=== PATIENT | female | born 1945 | race Caucasian/White ===

== ENCOUNTER 2021-04-27 21:26 | Emergency (ER) | payer BC ==
[2021-04-27] MEDS ORDERED: hydrOXYzine HCl 50 MG/ML SDV IM ONE (21:33)
[2021-04-27] MEDS ORDERED: Morphine 10 MG/ML SDV IM ONE (21:33)
--- NOTE | 2021-04-27 21:36 | EDM.PDOC ---
ED HPI GENERAL MEDICAL PROBLEM - General Stated Complaint: PATIENT IS IN HORRIBLE PAIN Time Seen by Provider: 04/27/21 21:34 Source of Information: Reports: Patient History Limitations: Reports: No Limitations - History of Present Illness INITIAL COMMENTS - FREE TEXT/NARRATIVE: Kristen complains of right lower abd. pain x 2d progressively getting worse.No vomiting. Associated with mild obstipation. No fever or chills and denies any symptoms Lower abd pain, R>L Pain Score (Numeric/FACES): 8 - Related Data Allergies Allergy/AdvReac Type Severity Reaction Status Date / Time No Known Allergies Allergy Verified 04/27/21 22:30 Home Meds: Home Meds Levothyroxine 75 mcg PO ACBREAKFAST 04/27/21 [History] ED ROS GENERAL - Review of Systems Review Of Systems: Comprehensive ROS is negative, except as noted in HPI. ED EXAM, GI/ABD - Physical Exam Exam: See Below Exam Limited By: No Limitations General Appearance: Alert, WD/WN, No Apparent Distress Nose: Normal Inspection Throat/Mouth: Normal Inspection Head: Atraumatic Neck: Normal Inspection Respiratory/Chest: No Respiratory Distress Cardiovascular: Normal Peripheral Pulses GI/Abdominal Exam: Normal Bowel Sounds, Distended, Rebound, Tender (RLQ) Rectal (Female) Exam: Deferred Back Exam: Normal Inspection Course - Vital Signs Last Recorded V/S: Last Vital Signs Temp 100.0 F 04/27/21 21:51 Pulse 65 04/27/21 21:51 Resp 20 04/27/21 21:51 BP 150/65 H 04/27/21 21:51 Pulse Ox 96 04/27/21 21:51 - Orders/Labs/Meds Orders: Active Orders 24 hr Category Date Time Status Abdomen Pelvis wo Cont [CT] Stat Exams 04/27/21 21:33 Taken UA W/MICROSCOPIC [URIN] Stat Lab 04/27/21 21:34 Ordered Sodium Chloride 0.9% [Normal Saline] 1,000 ml Med 04/27/21 23:15 Active IV ASDIRECTED Sodium Chloride 0.9% [Saline Flush] Med 04/27/21 23:02 Active 10 ml FLUSH ASDIRECTED PRN Peripheral IV Insertion Adult [OM.PC] Routine Oth 04/27/21 23:02 Ordered Medication Orders Sodium Chloride (Normal Saline) 1,000 mls @ 150 mls/hr IV ASDIRECTED DELFIN Sodium Chloride (Sodium Chloride 0.9% 10 Ml Syringe) 10 ml FLUSH ASDIRECTED PRN PRN Reason: Keep Vein Open Labs: Laboratory Tests 04/27/21 04/27/21 04/27/21 Range/Units 21:45 21:45 21:45 WBC 13.3 H (3.0-10.3) x10-3/uL RBC 4.35 (3.60-5.20) x10(6)uL Hgb 12.9 (11.4-15.5) g/dL Hct 38.5 (34.2-48.2) % MCV 88.4 (76.7-100.5) fL MCH 29.5 (23.9-33.9) pg MCHC 33.4 (31.9-34.8) g/dL RDW 12.9 (12.3-16.5) % Plt Count 230 (151-488) x10(3)uL MPV 8.9 (7.1-12.4) fL Neut % (Auto) 81.0 H (30.8-76.2) % Lymph % (Auto) 12.0 L (18.4-52.1) % [place] % (Auto) 6.4 (4.4-15.7) % Eos % (Auto) 0.2 L (0.6-8.1) % Baso % (Auto) 0.4 (0.2-1.5) % Neut # (Auto) 10.8 H (1.5-6.3) x10-3/uL Lymph # (Auto) 1.6 (1.0-4.4) x10-3/uL [place] # (Auto) 0.9 (0.3-1.0) x10-3/uL Eos # (Auto) 0.0 (0.0-0.8) x10-3/uL Baso # (Auto) 0.1 (0.0-0.1) x10-3/uL Sodium 142 (135-145) mmol/L Potassium 2.9 L (3.5-5.3) mmol/L Chloride 101 (100-110) mmol/L Carbon Dioxide 29 (21-32) mmol/L BUN 19 H (7-18) mg/dL Creatinine 1.2 H (0.55-1.02) mg/dL Est Cr Clr Drug Dosing 32.99 mL/min Estimated GFR (MDRD) 44 L (>60) BUN/Creatinine Ratio 15.8 (9-20) Glucose 203 H (80-116) mg/dL Lactic Acid 1.6 (0.4-2.0) mmol/L Calcium 8.6 (8.6-10.2) mg/dL Total Bilirubin 1.9 H (0.1-1.3) mg/dL AST 16 (5-25) IU/L ALT 19 (12-36) U/L Alkaline Phosphatase 56 (56-112) IU/L Total Protein 6.7 (6.0-8.0) g/dL Albumin 3.4 (3.2-4.6) g/dL Globulin 3.3 g/dL Albumin/Globulin Ratio 1.0 Meds: Medications Generic Name Dose Route Start Last Admin Trade Name Freq PRN Reason Stop Dose Admin Sodium Chloride 1,000 mls @ 150 mls/hr 04/27/21 23:15 Normal Saline IV ASDIRECTED DELFIN Sodium Chloride 10 ml 04/27/21 23:02 Sodium Chloride 0.9% 10 Ml Syringe FLUSH ASDIRECTED PRN Keep Vein Open Discontinued Medications Generic Name Dose Route Start Last Admin Trade Name Freq PRN Reason Stop Dose Admin Hydroxyzine HCl 50 mg 04/27/21 21:33 04/27/21 22:09 Hydroxyzine Hcl 50 Mg/Ml Sdv IM 04/27/21 21:34 50 mg ONETIME ONE Administration Morphine Sulfate 10 mg 04/27/21 21:33 04/27/21 22:08 Morphine 10 Mg/Ml Sdv IM 04/27/21 21:34 10 mg ONETIME ONE Administration Departure - Departure Time of Disposition: 23:26 Disposition: DC/Tfer to Acute Hospital 02 Clinical Impression: Abdominal pain - Discharge Information Sepsis Event Note (ED) - Focused Exam Vital Signs: Vital Signs Temp Pulse Resp BP Pulse Ox 04/27/21 21:51 100.0 F 65 20 150/65 H 96 - Problem List & Annotations (1) Acute appendicitis SNOMED Code(s): 22132605 Code(s): K35.80 - UNSPECIFIED ACUTE APPENDICITIS Status: Acute Current Visit: Yes Qualifiers: Acute appendicitis type: unspecified acute appendicitis type Qualified Code(s): K35.80 - Unspecified acute appendicitis (2) Pulmonary nodule SNOMED Code(s): 308918650 Code(s): R91.1 - SOLITARY PULMONARY NODULE Status: Acute Current Visit: Yes - Problem List Review Problem List Initiated/Reviewed/Updated: Yes - My Orders Last 24 Hours: My Active Orders 04/27/21 21:33 Abdomen Pelvis wo Cont [CT] Stat 04/27/21 21:34 UA W/MICROSCOPIC [URIN] Stat 04/27/21 23:02 Sodium Chloride 0.9% [Saline Flush] 10 ml FLUSH ASDIRECTED PRN Peripheral IV Insertion Adult [OM.PC] Routine 04/27/21 23:15 Sodium Chloride 0.9% [Normal Saline] 1,000 ml IV ASDIRECTED - Assessment/Plan Last 24 Hours: My Active Orders 04/27/21 21:33 Abdomen Pelvis wo Cont [CT] Stat 04/27/21 21:34 UA W/MICROSCOPIC [URIN] Stat 04/27/21 23:02 Sodium Chloride 0.9% [Saline Flush] 10 ml FLUSH ASDIRECTED PRN Peripheral IV Insertion Adult [OM.PC] Routine 04/27/21 23:15 Sodium Chloride 0.9% [Normal Saline] 1,000 ml IV ASDIRECTED Plan: Will transfer patient to [place].
[2021-04-27] MEDS ORDERED: Sodium Chloride 0.9% 10 ML Syringe FLUSH PRN (23:02)
[2021-04-27] MEDS ORDERED: Sodium Chloride 0.9% 1,000 ML IV SCH (23:15)
== END 2021-04-27 23:50 ==
LOC: FB.ED 21:26
DX: R10.31 Right lower quadrant pain (principal); R10.32 Left lower quadrant pain; Z79.899 Other long term (current) drug therapy
CPT/HCPCS: 36415; 74176; 80053; 83605; 85025; 96372; 99285; J2270; J3410

== ENCOUNTER 2021-04-30 19:32 | Emergency (ER) | payer BC ==
[2021-04-30] MEDS ORDERED: Ondansetron 4 MG/2 ML SDV IVPUSH ONE (20:03)
[2021-04-30] MEDS ORDERED: Ondansetron 4 MG/2 ML SDV ONE (20:14)
[2021-04-30] MEDS ORDERED: Sodium Chloride 0.9% 1,000 ML IV SCH (20:15)
--- NOTE | 2021-04-30 21:01 | EDM.PDOC ---
ED HPI GENERAL MEDICAL PROBLEM - General Chief Complaint: Abdominal Pain Stated Complaint: VOMITING Time Seen by Provider: 04/30/21 20:56 Source of Information: Reports: Patient History Limitations: Reports: No Limitations - History of Present Illness INITIAL COMMENTS - FREE TEXT/NARRATIVE: Kristen comes in with vomiting,constipation since Sunday. She was sent to [facility] on Sunday and had appendectomy on morning.She was discharged home today and started vomiting 2 hrs after arriving.No pain ,no fever. - Related Data Allergies Allergy/AdvReac Type Severity Reaction Status Date / Time No Known Allergies Allergy Verified 04/30/21 20:32 Home Meds: Home Meds Levothyroxine 75 mcg PO ACBREAKFAST 04/27/21 [History] Alendronate Sodium [Fosamax] 70 mg PO WEEKLY 04/30/21 [History] Levothyroxine [Synthroid] 88 mcg PO DAILY 04/30/21 [History] Omeprazole 20 mg PO ASDIRECTED PRN 04/30/21 [History] Oxybutynin 5 mg PO DAILY 04/30/21 [History] Rosuvastatin [Crestor] 10 mg PO BEDTIME 04/30/21 [History] Triamterene/Hydrochlorothiazid [Triamterene-HCTZ 75-50 MG] 75 mg PO DAILY 04/30/21 [History] Past Medical History HEENT History: Reports: Impaired Vision Cardiovascular History: Reports: High Cholesterol, Hypertension Endocrine/Metabolic History: Reports: Other (See Below) - Infectious Disease History Infectious Disease History: Reports: Shingles - Past Surgical History HEENT Surgical History: Reports: Cataract Surgery Female Surgical History: Reports: Hysterectomy Other Endocrine Surgeries/Procedures: thyroidectomy Social & Family History - Family History Family Medical History: No Pertinent Family History - Caffeine Use Caffeine Use: Reports: Coffee ED ROS GENERAL - Review of Systems Review Of Systems: Comprehensive ROS is negative, except as noted in HPI. ED EXAM, GI/ABD - Physical Exam Exam: See Below Exam Limited By: Other (Actively vomting) General Appearance: Alert, WD/WN Head: Normocephalic Respiratory/Chest: No Respiratory Distress, Lungs Clear GI/Abdominal Exam: Normal Bowel Sounds, Soft, Distended. No: Rebound Course - Vital Signs Last Recorded V/S: Last Vital Signs Temp 98.4 F 04/30/21 19:50 Pulse 66 04/30/21 19:50 Resp 18 04/30/21 19:50 BP 187/64 H 04/30/21 19:50 Pulse Ox 94 L 04/30/21 19:50 - Orders/Labs/Meds Orders: Active Orders 24 hr Category Date Time Status Abdomen 2V AP Flat Upright [CR] Stat Exams 04/30/21 20:03 Taken Sodium Chloride 0.9% [Normal Saline] 1,000 ml Med 04/30/21 20:15 Active IV ASDIRECTED Medication Orders Sodium Chloride (Normal Saline) 1,000 mls @ 999 mls/hr IV ASDIRECTED DELFIN Last Admin: 04/30/21 20:10 Dose: 999 mls/hr Documented by: LOTTIE Labs: Laboratory Tests 04/30/21 04/30/21 04/30/21 Range/Units 20:25 20:25 20:25 WBC 12.0 H (3.0-10.3) x10-3/uL RBC 4.06 (3.60-5.20) x10(6)uL Hgb 12.1 (11.4-15.5) g/dL Hct 36.6 (34.2-48.2) % MCV 90.2 (76.7-100.5) fL MCH 29.9 (23.9-33.9) pg MCHC 33.1 (31.9-34.8) g/dL RDW 13.3 (12.3-16.5) % Plt Count 254 (151-488) x10(3)uL MPV 8.5 (7.1-12.4) fL Neut % (Auto) 84.6 H (30.8-76.2) % Lymph % (Auto) 8.1 L (18.4-52.1) % [place] % (Auto) 5.9 (4.4-15.7) % Eos % (Auto) 1.0 (0.6-8.1) % Baso % (Auto) 0.4 (0.2-1.5) % Neut # (Auto) 10.1 H (1.5-6.3) x10-3/uL Lymph # (Auto) 1.0 (1.0-4.4) x10-3/uL [place] # (Auto) 0.7 (0.3-1.0) x10-3/uL Eos # (Auto) 0.1 (0.0-0.8) x10-3/uL Baso # (Auto) 0.0 (0.0-0.1) x10-3/uL Sodium 146 H (135-145) mmol/L Potassium 3.6 (3.5-5.3) mmol/L Chloride 108 D (100-110) mmol/L Carbon Dioxide 27 (21-32) mmol/L BUN 15 (7-18) mg/dL Creatinine 1.0 (0.55-1.02) mg/dL Est Cr Clr Drug Dosing 39.59 mL/min Estimated GFR (MDRD) 54 L (>60) BUN/Creatinine Ratio 15.0 (9-20) Glucose 185 H (80-116) mg/dL Lactic Acid 1.1 (0.4-2.0) mmol/L Calcium 7.6 L (8.6-10.2) mg/dL Total Bilirubin 0.7 (0.1-1.3) mg/dL AST 13 D (5-25) IU/L ALT 13 D (12-36) U/L Alkaline Phosphatase 46 L (56-112) IU/L C-Reactive Protein (0.5-0.9) mg/dL Total Protein 5.9 L (6.0-8.0) g/dL Albumin 2.6 L (3.2-4.6) g/dL Globulin 3.3 g/dL Albumin/Globulin Ratio 0.8 Urine Color (YELLOW) Urine Appearance (CLEAR) Urine pH (5.0-6.5) Ur Specific [place] (1.010-1.025) Urine Protein (NEGATIVE) mg/dL Urine Glucose (UA) (NORMAL) mg/dL Urine Ketones (NEGATIVE) mg/dL Urine Occult Blood (NEGATIVE) Urine Nitrite (NEGATIVE) Urine Bilirubin (NEGATIVE) Urine Urobilinogen (NEGATIVE) mg/dL Ur Leukocyte Esterase (NEGATIVE) Urine RBC (0-5) Urine WBC (0-5) Ur Squamous Epith Cells (NS,R,O) Urine Bacteria (NS) 04/30/21 04/30/21 Range/Units 20:25 21:13 WBC (3.0-10.3) x10-3/uL RBC (3.60-5.20) x10(6)uL Hgb (11.4-15.5) g/dL Hct (34.2-48.2) % MCV (76.7-100.5) fL MCH (23.9-33.9) pg MCHC (31.9-34.8) g/dL RDW (12.3-16.5) % Plt Count (151-488) x10(3)uL MPV (7.1-12.4) fL Neut % (Auto) (30.8-76.2) % Lymph % (Auto) (18.4-52.1) % [place] % (Auto) (4.4-15.7) % Eos % (Auto) (0.6-8.1) % Baso % (Auto) (0.2-1.5) % Neut # (Auto) (1.5-6.3) x10-3/uL Lymph # (Auto) (1.0-4.4) x10-3/uL [place] # (Auto) (0.3-1.0) x10-3/uL Eos # (Auto) (0.0-0.8) x10-3/uL Baso # (Auto) (0.0-0.1) x10-3/uL Sodium (135-145) mmol/L Potassium (3.5-5.3) mmol/L Chloride (100-110) mmol/L Carbon Dioxide (21-32) mmol/L BUN (7-18) mg/dL Creatinine (0.55-1.02) mg/dL Est Cr Clr Drug Dosing mL/min Estimated GFR (MDRD) (>60) BUN/Creatinine Ratio (9-20) Glucose (80-116) mg/dL Lactic Acid (0.4-2.0) mmol/L Calcium (8.6-10.2) mg/dL Total Bilirubin (0.1-1.3) mg/dL AST (5-25) IU/L ALT (12-36) U/L Alkaline Phosphatase (56-112) IU/L C-Reactive Protein 18.6 H* (0.5-0.9) mg/dL Total Protein (6.0-8.0) g/dL Albumin (3.2-4.6) g/dL Globulin g/dL Albumin/Globulin Ratio Urine Color Yellow (YELLOW) Urine Appearance Clear (CLEAR) Urine pH 6.0 (5.0-6.5) Ur Specific [place] 1.025 (1.010-1.025) Urine Protein Negative (NEGATIVE) mg/dL Urine Glucose (UA) >1000 H (NORMAL) mg/dL Urine Ketones Negative (NEGATIVE) mg/dL Urine Occult Blood Negative (NEGATIVE) Urine Nitrite Negative (NEGATIVE) Urine Bilirubin Negative (NEGATIVE) Urine Urobilinogen Normal (NEGATIVE) mg/dL Ur Leukocyte Esterase Negative (NEGATIVE) Urine RBC 0-5 (0-5) Urine WBC 0-5 (0-5) Ur Squamous Epith Cells Few H (NS,R,O) Urine Bacteria Few H (NS) Meds: Medications Generic Name Dose Route Start Last Admin Trade Name Freq PRN Reason Stop Dose Admin Sodium Chloride 1,000 mls @ 999 mls/hr 04/30/21 20:15 04/30/21 20:10 Normal Saline IV 999 mls/hr ASDIRECTED DELFIN Administration Discontinued Medications Generic Name Dose Route Start Last Admin Trade Name Freq PRN Reason Stop Dose Admin Ketorolac Tromethamine 30 mg 04/30/21 21:50 04/30/21 22:09 Ketorolac 30 Mg/Ml Sdv IVPUSH 04/30/21 21:51 30 mg ONETIME ONE Administration Lorazepam 0.5 mg 04/30/21 21:50 04/30/21 22:08 Lorazepam 2 Mg/Ml Sdv IVPUSH 04/30/21 21:51 0.5 mg ONETIME ONE Administration Ondansetron HCl 8 mg 04/30/21 20:03 04/30/21 20:46 Ondansetron 4 Mg/2 Ml Sdv IVPUSH 04/30/21 20:04 8 mg ONETIME ONE Administration Ondansetron HCl Confirm 04/30/21 20:14 04/30/21 20:46 Ondansetron 4 Mg/2 Ml Sdv Administered 04/30/21 20:15 Not Given Dose 4 mg .ROUTE .STK-MED ONE Departure - Departure Time of Disposition: 22:22 Disposition: DC/[facility]fer to [facility] 02 Clinical Impression: Abdominal pain, S/P appendectomy, SBO (small bowel obstruction) - Discharge Information Referrals: Saturnino Mccall MD [Primary Care Provider] - Forms: ED Department Discharge Sepsis Event Note (ED) - Evaluation Sepsis Screening Result: No Definite Risk - Focused Exam Vital Signs: Vital Signs Temp Pulse Resp BP BP Pulse Ox 04/30/21 19:50 98.4 F 66 18 184/75 H 187/64 H 94 L - Problem List & Annotations (1) S/P appendectomy SNOMED Code(s): 217657242, 84821679, 447316511 Code(s): Z90.49 - ACQUIRED ABSENCE OF OTHER SPECIFIED PARTS OF DIGESTIVE TRACT Status: Acute Current Visit: Yes (2) SBO (small bowel obstruction) SNOMED Code(s): 693291213 Code(s): K56.609 - UNSP INTESTNL OBST, UNSP TO PARTIAL VERSUS COMPLETE OBST Status: Acute Current Visit: Yes - Problem List Review Problem List Initiated/Reviewed/Updated: Yes - My Orders Last 24 Hours: My Active Orders 04/30/21 20:03 Abdomen 2V AP Flat Upright [CR] Stat 04/30/21 20:15 Sodium Chloride 0.9% [Normal Saline] 1,000 ml IV ASDIRECTED - Assessment/Plan Last 24 Hours: My Active Orders 04/30/21 20:03 Abdomen 2V AP Flat Upright [CR] Stat 04/30/21 20:15 Sodium Chloride 0.9% [Normal Saline] 1,000 ml IV ASDIRECTED Plan: IV access obtained. I gave her Toradol. And Ativan. NG tube place. I called [facility] and will transfer her
[2021-04-30] MEDS ORDERED: LORazepam 2 MG/ML SDV IVPUSH ONE (21:50)
[2021-04-30] MEDS ORDERED: Ketorolac 30 MG/ML SDV IVPUSH ONE (21:50)
== END 2021-04-30 23:37 ==
LOC: FB.ED 19:32
DX: K56.609 Unspecified intestinal obstruction, unspecified as to partial versus complete obstruction (principal); E78.00 Pure hypercholesterolemia, unspecified; I10 Essential (primary) hypertension; Z90.49 Acquired absence of other specified parts of digestive tract; Z79.899 Other long term (current) drug therapy
CPT/HCPCS: 36415; 74019; 80053; 81001; 83605; 85025; 86140; 96374; 96375; 99284-25; J1885; J2060; J2405; J7030